=== PATIENT | male | born 1940 | race Caucasian/White ===

== ENCOUNTER → 2018-09-20 16:21 | Outpatient (CLI) | payer MEDICARE, OTHER, SELFPAY ==
--- NOTE | 2018-09-20 16:24 | DI.RAD.S_ITS ---
PROCEDURE: XR LUMBAR SPINE MIN 4V INDICATIONS: L4-5 PAIN TECHNIQUE: 5 total views of the lumbar spine were acquired, including bilateral oblique views. COMPARISON: [facility], CT, CT-IVP, 07/28/2010, 10:21. [facility], CR, ABDOMEN 1 VIEW, 07/28/2010, 10:23. [facility], MR, MR LUMBAR SPINE WO CON, 09/20/2018, 16:34. FINDINGS: Bones: 5 nonrib-bearing vertebrae are present. There is normal bony alignment. No vertebral body compression fractures. No suspicious bony lesions. Mild to moderate disc space narrowing is seen at L4-L5. The disc heights otherwise are well preserved. Lower lumbar spine facet arthropathy is seen. Partially bridging endplate osteophytes are seen anteriorly at L4-L5. Note is made of mild loss of disc height and bridging endplate osteophytes anteriorly at T10-T11. Soft tissues: Overlying bowel gas pattern is normal. No suspicious soft tissue calcifications. There is a 6 mm calcification seen involving right upper quadrant, which is unchanged compared to 2011 and previously seen to be a right lower lobe calcified granuloma. Oblique images: No pars defects. IMPRESSION: Focal L4-L5 degenerative change can be seen. No pars defects are seen. Dictated by: Chukc Elizalde M.D. on 09/20/2018 at 16:59 Approved by: Chuck Elizalde M.D. on 09/20/2018 at 17:01
--- NOTE | 2018-09-20 16:24 | DI.MRI.S_ITS ---
PROCEDURE: MR LUMBAR SPINE WO CON INDICATIONS: L4-5 HNP TECHNIQUE: Noncontrast sagittal T1 spin echo and T2 fast echo, sagittal STIR, axial T1 and T2 fast spin echo through the lumbar spine. In cases with scoliosis, additional coronal T2 fast spin echo may be performed. COMPARISON: [facility], CT, CT-IVP, 07/28/2010, 10:21. [facility], MR, L-SPINE WITHOUT CONTRAST, 07/13/2010, 17:22. [facility], CR, XR LUMBAR SPINE MIN 4V, 09/20/2018, 17:00. FINDINGS: Image quality: Excellent. Alignment and Curvature: There is normal bony alignment. Bone Marrow: Marrow is of normal overall signal. No acute vertebral body compression fractures. Scattered foci are seen, which are hyperintense on T1-weighted and T2-weighted imaging, which are most consistent with benign vertebral body hemangiomas. Spinal Cord: Conus medullaris terminates at the L1 level. Visualized cord demonstrates normal signal and size. Paraspinous Soft Tissues: No paravertebral masses. T12-L1: Normal appearance. L1-L2: No significant abnormality is seen. L2-L3: The disc height is well-preserved. Loss of disc signal is seen at this level. Mild to moderate disc bulge is seen. Mild facet joint hypertrophy is seen. Ugtg-my-jzfhfkpm bilateral neural foraminal narrowing is seen. Phjx-ph-ggotnebf central canal narrowing is seen. These imaging findings have progressed compared to the prior study. L3-L4: The disc height is well-preserved. Loss of disc signal is seen at this level. Moderate generalized disc bulge is seen. Mild facet joint hypertrophy is seen. There is associated mild hypertrophy of the ligamentum flavum. Moderate bilateral neural foraminal narrowing is seen. Moderate central canal narrowing is seen. These imaging findings have progressed compared to the prior study. L4-L5: Mild to moderate loss of disc height and signal are seen. Moderate generalized disc bulge is seen. Wzzk-us-gprdzajj facet hypertrophy is seen. There is mild to moderate right-sided and moderate left-sided neural foraminal narrowing seen. Mild central canal narrowing is seen. There is a relatively prominent annular fissure seen posteriorly and on the left, as on series 2 image 11, which is more prominent than in 2011. L5-S1: The disc height is well-preserved. Loss of disc signal is seen at this level. Mild generalized disc bulge is seen. Mild facet joint hypertrophy is seen. No significant neural foraminal or central canal narrowing can be seen. When comparison is made with the prior examination, these findings are similar. IMPRESSION: At the L4-L5 level, there is a relatively prominent annular fissure seen, which has progressed compared to 2011. Multiple levels of lumbar spine degenerative change are seen, which are overall progressed compared to 2011. Dictated by: Chuck Elizalde M.D. on 09/20/2018 at 16:35 Approved by: Chuck Elizalde M.D. on 09/20/2018 at 16:41
== END ==
PROVIDERS: PCP Family Medicine; Visit Provider Physical Medicine & Rehabilitation
DX: M51.16 Intervertebral disc disorders with radiculopathy, lumbar region (principal); C61 Malignant neoplasm of prostate; M47.26 Other spondylosis with radiculopathy, lumbar region; M47.27 Other spondylosis with radiculopathy, lumbosacral region
CPT/HCPCS: 72110; 72148

== ENCOUNTER 2018-11-22 09:37 | Outpatient (CLI) | payer MEDICARE, OTHER, SELFPAY ==
[2018-11-22] VITALS (8 sets, daily range): BP systolic 97–116; BP diastolic 50–63; PULSE 56–68; RESP 16; TEMP 36.2; O2SAT 95–99
--- NOTE | 2018-11-22 09:39 | DI.RAD.S_ITS ---
PROCEDURE: PAIN L/S TRANSFORAMINAL INJECT INDICATIONS: RADICULOPATHY FINDINGS: Fluoroscopic spot filming was performed to verify placement of spinal needles at the right L4-L5 level(s), as labeled on the films. Appropriate location(s) of the needle tip(s) was confirmed by injection of iodinated contrast. IMPRESSION: Fluoroscopy for pain management. Dictated by: Elo Goff M.D. on 11/22/2018 at 15:23 Approved by: Elo Goff M.D. on 11/22/2018 at 15:24
[2018-11-22] MEDS: MIDAZOLAM 5 MG/5 ML VIAL IV (10:37)
[2018-11-22] MEDS: fentaNYL 100 MCG/2 ML INJ 50 MCG IV (10:38)
[2018-11-22] MEDS: BETAMETHASONE 30 MG/5 ML MDV 12 MG INJ (10:43)
[2018-11-22] MEDS: BUPIVACAINE 0.25% (PF) VIAL 2 ML INJ (10:43)
[2018-11-22] MEDS: IOPAMIDOL 15 ML VIAL 3 ML INJ (10:43)
--- NOTE | 2018-11-22 10:45 | PC.NURSE ---
ASSISTING PT OFF TABLE AND TRANSPORTING TO POST PROC AREA IN STABLE CONDITION
--- NOTE | 2018-11-22 10:49 | P.PCN_ITS ---
Procedures Date/Time Date of procedure: 11/22/18 Time of procedure: 10:48 General Procedure description: PREOP DIAGNOSIS 1. FORMAINAL STENOSIS WITH LE SYMPTOMS POST OP DIAGNOSIS 1. FORMAINAL STENOSIS WITH LE SYMPTOMS PROCEDURES 1. FLUOROSCOPICALLY GUIDED CONTRAST CONTROLLED TRANSFORAMINAL EPIDURAL STEROID INJECTION - RIGHT L4/5 TFESI PHYSICIAN: Jaswant Carroll DO INDICATIONS: Homar is referred by for treatment of Foraminal Stenosis with Right LE Symptoms FINDINGS Foraminal Nerve Root Compression secondary to disc disease and facet hypertrophy DESCRIPTION OF PROCEDURE: Following review of allergy and review of potential side effects and complications, including, but not necessarily limited to, infection, allergic reaction, local tissue breakdown, stroke, temporary or permanent nerve injury, paralysis, and possible , the patient indicated that the patient understood and agreed to proceed. An informed consent document was signed by the patient, witnessed by a nurse, and placed in the patient's chart. Additionally, other treatment options including medications, modalities, and physical therapy were reviewed with the patient. After review of previous anaesthesic history and IV conscious sedation the patient was deemed safe to proceed with todays procedure with IV conscious sedation as ASA class II designation. Safety time-out was performed to confirm patient ID, procedure to be performed and site of procedure. IV sedation was accomplished with a combination of 2mg of Versed and 50mcg of Fentanyl was administered by the RN after DO order, titrated to patient comfort during the course of the procedure while the patient remained responsive to all verbal commands In the prone position following sterile prep and drape of the lumbar region, the Right L4/5 posterior neuroforamen was identified fluoroscopically. The skin was anesthetized via a 25-gauge 1.5-inch needle with 1% lidocaine solution. At this point, a 25-gauge 3.5-inch spinal needle was atraumatically introduced and advanced under fluoroscopic guidance through the posterior Right L4/5 neuroforamen to approximately the anterior aspect of the canal. Depth was confirmed on lateral view. Following negative aspiration, injection of approximately 1.5 cc of Isovue 200 under live fluoroscopy in the AP view confirmed excellent flow along the nerve root, into the epidural space without vascular or intrathecal uptake observed Radiological data, including multiple fluoroscopic views of the lumbosacral spine, reveal a spinal needle at the right L4/5 posterior neuroforamen. Subsequent views show flow of contrast material flowing superiorly and inferiorly along the nerve root confirming epidural flow. Subsequently, a test dose of 1.5 cc of 1% lidocaine solution was administered and patient was observed for two minutes for signs or symptoms of complications, including abdominal pain, shortness of breath, bilateral upper or lower extremity weakness, nausea and vomiting, prior to steroid injection. At this point, a total of 2cc or 20mg of dexamethasone was injected without incident. The procedure tolerated the procedure well without signs or symptoms of complications prior to transfer to the recovery area continued monitoring without incident.The patient was then transferred to the recovery area where they were observed for an appropriate time after the injection. The patient reported a VAS score of 7 prior to the procedure and a post- procedure VAS of 0. Total Fluoroscopy Time: 20.9 seconds Total Conscious Sedation Time: 24min POST OP INSTRUCTIONS The patient was provided a Pain Log to continue to record their response to the target-specific procedure prior to follow-up visit with their referring physician. Additionally, specific post-injection care instructions and a contact number to our office were provided if concerns arise regarding possible complications associated with the procedure are suspected. Jaswant Carroll DO Complications: none
--- NOTE | 2018-11-22 11:09 | PC.NURSE ---
pt returned from procedure awake and alert. Able to move from w/c to chair with standby assist. Resumed monitoring from [facility].
== END 2018-11-22 11:19 ==
LOC: RAD 09:37
PROVIDERS: PCP Family Medicine; Visit Provider Physical Medicine & Rehabilitation
DX: M48.061 Spinal stenosis, lumbar region without neurogenic claudication (principal); M51.16 Intervertebral disc disorders with radiculopathy, lumbar region
CPT/HCPCS: 64483; 99152; J0702; J2250; J3010

== ENCOUNTER 2019-05-07 13:06 | Outpatient (CLI) | payer MEDICARE, OTHER, SELFPAY ==
[2019-05-07] VITALS (8 sets, daily range): BP systolic 96–116; BP diastolic 54–70; PULSE 62–72; RESP 16–18; TEMP 36.1; O2SAT 96–98
--- NOTE | 2019-05-07 13:07 | DI.RAD.S_ITS ---
PROCEDURE: PAIN L INTERLAMINAR/CAUDAL INJ INDICATIONS: RADICULOPATHY FINDINGS: Fluoroscopic spot filming was performed to verify placement of spinal needles at the L4-5 dorsal interlaminar level(s), as labeled on the films. Appropriate location(s) of the needle tip(s) was confirmed by injection of iodinated contrast. IMPRESSION: Successful needle tip localization at the L4-5 interlaminar notch level for dorsal epidural steroid injection. Dictated by: Toribio Sanches M.D. on 05/07/2019 at 15:02 Approved by: Toribio Sanches M.D. on 05/07/2019 at 15:02
[2019-05-07] MEDS: fentaNYL 100 MCG/2 ML INJ 50 MCG IV (14:04)
[2019-05-07] MEDS: MIDAZOLAM 5 MG/5 ML VIAL IV (14:04)
[2019-05-07] MEDS: BUPIVACAINE 0.25% (PF) VIAL 2 ML INJ (14:11)
[2019-05-07] MEDS: DEXAMETHASONE 10 MG/ML VIAL 20 MG INJ (14:11)
[2019-05-07] MEDS: IOPAMIDOL 15 ML VIAL 3 ML INJ (14:11)
[2019-05-07] MEDS: BETAMETHASONE 30 MG/5 ML MDV 6 MG INJ (14:11)
--- NOTE | 2019-05-07 14:13 | PC.NURSE ---
ASSISTING PT OFF TABLE AND TRANSPORTING TO POST PROC AREA IN STABLE CONDITION.
--- NOTE | 2019-05-07 14:17 | P.PCN_ITS ---
Procedures Date/Time Date of procedure: 05/07/19 Time of procedure: 14:17 General Procedure description: PROVIDER: Jaswant Carroll DO Operative Note PREOP DIAGNOSIS 1. HNP WITH RADICULAR FEATURES, 2. MULTILEVEL CENTRAL STENOSIS, POST OP DIAGNOSIS 1. HNP WITH RADICULAR FEATURES, 2. MULTILEVEL CENTRAL STENOSIS PROCEDURES 1. FLUORSCOPICALLY GUIDED CONTRAST CONTROLLED INTERLAMINAR EPIDURAL STEROID INJECTION -L4/5 PHYSICIAN: Jaswant Carroll DO INDICATIONs: Homar is referred by Dr. Taylor for treatment of Bilateral Foraminal Stenosis R>L LE symptoms. FINDINGS Multilevel Central Spinal Stenosis with Nerve Root Compression DESCRIPTION OF PROCEDURE Fluoroscopically guided, contrast-controlled L4/5 translaminar epidural steroid injection. Following review of allergy and review of potential side effects and complications, including, but not necessarily limited to, infection, allergic reaction, local tissue breakdown, temporary as well as permanent nerve injury, paralysis, stroke and possible , the patient indicated that the patient understood and agreed to proceed. An informed consent document was signed by the patient, witnessed by a nurse, and placed in the patient's chart. Additionally, other treatment options including modalities, medications, and physical therapy were reviewed with the patient. After review of previous anaesthesic history and IV conscious sedation the patient was deemed safe to proceed with todays procedure with IV conscious sedation as ASA class II designation. Safety time-out was performed to confirm patient ID, procedure to be performed and site of procedure. IV sedation was accomplished with a combination of 2mg of Versed and 50mcg of Fentanyl was administered by the RN after DO order, titrated to patient comfort during the course of the procedure while the patient remained responsive to all verbal commands In the prone position, following sterile prep and drape of the lumbar region, the L4/5 translaminar space was identified fluoroscopically. The skin was anesthetized via a 25-gauge, 1.5-inch needle with 1% lidocaine solution. At this point, a 22-gauge short bevel spinal needle was atraumatically introduced and advanced under fluoroscopic guidance into the region of the L4/5 translaminar space. Depth was confirmed on lateral view. Radiological data, including multiple fluoroscopic views of the lumbar spine, reveal a spinal needle at the L4/5 translaminar space. Lateral views then show placement of the needle in the epidural space. Subsequent views show contrast material flowing superiorly and inferiorly in the epidural space. No vascular or intrathecal uptake is observed. At this point, using loss of resistance technique with saline and air, the epidural space was entered. This was confirmed following negative aspiration with injection of approximately 1.5 cc of Isovue 200, showing excellent epidural flow without vascular or intrathecal uptake. At this point, 1 cc of 1% lidocaine solution combined with 3cc or 20mg of dexamethasone and 6mg betamethasone was injected without incident. The patient tolerated the procedure well without signs or symptoms of complications prior to transfer to the recovery area continued monitoring without incident. The patient was then transferred to the recovery area where they were observed for an appropriate period of time after the injection. The patient reported a VAS score of 6 prior to the procedure and a post- procedure VAS of 0. Total Fluoroscopy Time: 11.8 seconds, 8.99 mGy Total Conscious Sedation Time: 24min POST OP INSTRUCTIONS The patient was provided a Pain Log to continue to record their response to the target-specific procedure prior to follow-up visit with their referring physician. Additionally, specific post-injection care instructions and a contact number to our office were provided if concerns arise regarding possible complications associated with the procedure are suspected. Jaswant Carroll, Complications: none
--- NOTE | 2019-05-07 15:48 | PC.NURSE ---
Late entry: Post procedure note--Patient arrived for post procedure monitoring at 1420. Handoff report received from Priya Mclean RN. Patient AA/O X3. Pain level 2/10. Able to transfer from w/c to recliner with stand by assist. VSS and O2 sats WNL post procedure. Discharge instructions given and reviewed with patient and with good understanding. Stable for discharge to home. W/C to car at 1445.
== END 2019-05-07 14:42 | disposition home or self-care (01) ==
LOC: RAD 13:07
PROVIDERS: PCP Family Medicine; Visit Provider Physical Medicine & Rehabilitation
DX: M51.16 Intervertebral disc disorders with radiculopathy, lumbar region (principal); M48.061 Spinal stenosis, lumbar region without neurogenic claudication
CPT/HCPCS: 62323; 99152; J0702; J1100; J2250; J3010

== ENCOUNTER → 2020-09-22 09:20 | Outpatient (CLI) | payer MEDICARE, OTHER, SELFPAY ==
[2020-09-22 19:37] LABS: BUN Creatinine Ratio 27.9 (6-22); Blood Urea Nitrogen 31 mg/dL (9-20); Calcium 9.5 mg/dL (8.4-10.2); Carbon Dioxide 28 mmol/L (22-32); Chloride 101 mmol/L (98-107); Estimated Glomerular Filt Rate > 60.0 mL/min (>60); Glucose 79 mg/dL (80-110); HEMOLYSIS 28 (0-50); Potassium 4.5 mmol/L (3.4-5.1); Sodium 139 mmol/L (137-145)
[2020-09-24 07:56] LABS: PSA Free % 20.2 % (.); PSA, Total 5.3 ng/mL (0.0-4.0)
== END ==
PROVIDERS: PCP Family Medicine; Visit Provider Family Medicine
DX: I10 Essential (primary) hypertension (principal); N40.1 Benign prostatic hyperplasia with lower urinary tract symptoms; N13.8 Other obstructive and reflux uropathy
CPT/HCPCS: 80048; 84153; 84154

== ENCOUNTER → 2020-12-17 10:44 | Outpatient (CLI) | payer MEDICARE, OTHER, SELFPAY ==
[2020-12-18 09:20] LABS: PSA Free % 26.9 % (.); PSA, Total 2.9 ng/mL (0.0-4.0)
== END ==
PROVIDERS: PCP Family Medicine; Referring Provider Family Medicine; Visit Provider Family Medicine
DX: I10 Essential (primary) hypertension (principal); N40.1 Benign prostatic hyperplasia with lower urinary tract symptoms; N13.8 Other obstructive and reflux uropathy
CPT/HCPCS: 36415; 84153; 84154

== ENCOUNTER → 2021-03-31 08:06 | Outpatient (CLI) | payer MEDICARE, OTHER, SELFPAY ==
[2021-03-31 20:40] LABS: COVID19 - ORCAS (NP or Nasal) Negative (Negative)
== END ==
PROVIDERS: PCP Family Medicine; Visit Provider Physician Assistant Medical
DX: Z20.822 Contact with and (suspected) exposure to COVID-19 (principal)
CPT/HCPCS: C9803; U0003

== ENCOUNTER → 2021-11-16 08:47 | Outpatient (CLI) | payer MEDICARE, OTHER, SELFPAY ==
--- NOTE | 2021-11-16 08:48 | DI.MRI.S_ITS ---
PROCEDURE: MR LUMBAR SPINE WO CON INDICATIONS: Low back pain left lower extremity radiculopathy TECHNIQUE: Noncontrast sagittal T1 spin echo and T2 fast echo, sagittal STIR, and T2 fast spin echo through the lumbar spine. In cases with scoliosis, additional coronal T2 fast spin echo may be performed. COMPARISON: [facility], MR, MR LUMBAR SPINE WO CON, 09/20/2018, 16:34. FINDINGS: Image quality: Excellent. Alignment and Curvature: There is normal bony alignment. Bone Marrow: Marrow is of normal overall signal. No acute vertebral body compression fractures. Spinal Cord: Conus medullaris terminates at the L1 level. Visualized cord demonstrates normal signal and size. Paraspinous Soft Tissues: No paravertebral masses. T12-L1: Normal appearance. L1-L2: Normal appearance. L2-3: Disc space narrowing with circumferential disc bulge and ligamentum flavum laxity results in mild central stenosis. Mild bilateral foraminal stenosis greater on the right. L3-4: Disc space narrowing and circumferential disc bulge with ligamentum flavum laxity results in moderate central stenosis, effacing both lateral recesses. There is moderate bilateral foraminal stenosis present. L4-5: Disc space narrowing and circumferential disc bulge with hypertrophic facet joints results in mild central stenosis. Mild bilateral foraminal stenosis is greater on the left. L5-S1: Disc height is preserved. No central or foraminal stenosis. IMPRESSION: 1. Multilevel degenerative disc disease and arthropathy results in varying degrees of central and foraminal stenosis, including moderate central stenosis at L3-4, stable from prior Approved by: Dre Khan M.D. on 11/16/2021 at 12:34
== END ==
PROVIDERS: PCP Family Medicine; Referring Provider Physical Medicine & Rehabilitation; Visit Provider Physical Medicine & Rehabilitation
DX: M54.17 Radiculopathy, lumbosacral region (principal); M51.36 Other intervertebral disc degeneration, lumbar region; M48.061 Spinal stenosis, lumbar region without neurogenic claudication; M47.816 Spondylosis without myelopathy or radiculopathy, lumbar region
CPT/HCPCS: 72148

== ENCOUNTER 2021-11-16 11:55 | Outpatient (CLI) | payer MEDICARE, OTHER, SELFPAY ==
[2021-11-16] VITALS (7 sets, daily range): BP systolic 97–123; BP diastolic 52–65; PULSE 65–72; RESP 13–20; TEMP 36.8; O2SAT 97–100
--- NOTE | 2021-11-16 11:57 | DI.RAD.S_ITS ---
PROCEDURE: PAIN L/S TRANSFORAMINAL INJECT INDICATIONS: SPONDYLOSIS COMPARISON: [facility], , PAIN L/S TRANSFORAMINAL INJECT, 11/22/2018, 10:42. FINDINGS: Fluoroscopic spot filming was performed to verify placement of spinal needles at the L4-5 level(s), as labeled on the films. Appropriate location(s) of the needle tip(s) was confirmed by injection of iodinated contrast. IMPRESSION: L4-5 facet injection. Dictated by: Dorothy Sofia M.D. on 11/16/2021 at 16:18 Approved by: Droothy Sofia M.D. on 11/16/2021 at 16:19
[2021-11-16 12:49] LABS: COVID19 -Nasal RAPID Negative (Negative)
[2021-11-16] MEDS: MIDAZOLAM 2 MG/2 ML VIAL IV (13:04)
[2021-11-16] MEDS: IOPAMIDOL 15 ML VIAL 3 ML INJ (13:07)
[2021-11-16] MEDS: BUPIVACAINE 0.25% (PF) VIAL 2 ML INJ (13:08)
[2021-11-16] MEDS: BETAMETHASONE 30 MG/5 ML MDV 6 MG INJ (13:08)
[2021-11-16] MEDS: DEXAMETHASONE 10 MG/ML VIAL 20 MG INJ (13:08)
--- NOTE | 2021-11-16 13:22 | P.PCN_ITS ---
Date/Time/Diagnoses Date of procedure: 11/16/21 Time of procedure: 13:22 Pre-procedure diagnosis: 1. FORAMINAL STENOSIS WITH LE SYMPTOMS Post-procedure diagnosis: same Procedure Notes Procedure: 1. FLUOROSCOPICALLY GUIDED CONTRAST CONTROLLED TRANSFORAMINAL EPIDURAL STEROID INJECTION - LEFT L4/5 Indications: Homar is referred by Dr. Davis for treatment of Foraminal Stenosis with Left LE Symptoms Physician: Jaswant Carroll Total Fluoroscopy time (seconds): 11 Total sedation minutes: 12 Complications: none Procedure in detail & Post-procedure care: FINDINGS Foraminal Nerve Root Compression secondary to disc disease and facet hypertrophy DESCRIPTION OF PROCEDURE Following review of allergy and review of potential side effects and complications, including, but not necessarily limited to, infection, allergic reaction, local tissue breakdown, stroke, temporary or permanent nerve injury, paralysis, and possible , the patient indicated that the patient understood and agreed to proceed. An informed consent document was signed by the patient, witnessed by a nurse, and placed in the patient's chart. Additionally, other treatment options including medications, modalities, and physical therapy were reviewed with the patient. After review of previous anaesthesic history and IV conscious sedation the patient was deemed safe to proceed with today?s procedure with IV conscious sedation as ASA class II designation. Safety time-out was performed to confirm patient ID, procedure to be performed and site of procedure. IV sedation was accomplished with a combination of 2mg of Versed administered by the RN after DO order, titrated to patient comfort during the course of the procedure while the patient remained responsive to all verbal commands In the prone position following sterile prep and drape of the lumbar region, the left L4/5 posterior neuroforamen was identified fluoroscopically. The skin was anesthetized via a 25-gauge 1.5-inch needle with 1% lidocaine solution. At this point, a 25-gauge 3.5-inch spinal needle was atraumatically introduced and advanced under fluoroscopic guidance through the posterior left L4/5 neuroforamen to approximately the anterior aspect of the canal. Depth was confirmed on lateral view. Following negative aspiration, injection of approximately 1.5 cc of Isovue 200 under live fluoroscopy in the AP view confirmed excellent flow along the nerve root, into the epidural space without vascular or intrathecal uptake observed Radiological data, including multiple fluoroscopic views of the lumbosacral spine, reveal a spinal needle at the left L4/5 posterior neuroforamen. Subsequent views show flow of contrast material flowing superiorly and inferiorly along the nerve root confirming epidural flow. Subsequently, a test dose of 1.5 cc of 1% lidocaine solution was administered and patient was observed for two minutes for signs or symptoms of complications, including abdominal pain, shortness of breath, bilateral upper or lower extremity weakness, nausea and vomiting, prior to steroid injection. At this point, a total of 3cc or 20mg of dexamethasone and 6mg of betamethasone was injected without incident. The procedure tolerated the procedure well without signs or symptoms of complications prior to transfer to the recovery area continued monitoring without incident. The patient was then transferred to the recovery area where they were observed for an appropriate time after the injection. The patient reported a VAS score of 7 prior to the procedure and a post- procedure VAS of 0. POST OP INSTRUCTIONS The patient was provided a Pain Log to continue to record their response to the target-specific procedure prior to follow-up visit with their referring physician. Additionally, specific post-injection care instructions and a contact number to our office were provided if concerns arise regarding possible complications associated with the procedure are suspected.
== END 2021-11-16 13:36 | disposition home or self-care (01) ==
LOC: RAD 11:56
PROVIDERS: PCP Family Medicine; Referring Provider Physical Medicine & Rehabilitation; Visit Provider Physical Medicine & Rehabilitation
DX: M54.17 Radiculopathy, lumbosacral region (principal); M51.36 Other intervertebral disc degeneration, lumbar region; M48.061 Spinal stenosis, lumbar region without neurogenic claudication; M47.816 Spondylosis without myelopathy or radiculopathy, lumbar region; Z20.822 Contact with and (suspected) exposure to COVID-19
CPT/HCPCS: 64483; 72148; 87635; 99152; J0702; J1100; J2250

== ENCOUNTER → 2022-03-23 12:20 | Outpatient (CLI) | payer MEDICARE, OTHER, SELFPAY ==
[2022-03-23 19:21] LABS: Add Manual Diff / Slide Review NO; Basophils Absolute Auto 0 /uL (0-100); Basophils Percent Auto 0.6 % (0-2); Eosinophils Absolute Auto 100 /uL (0-450); Hematocrit 38.4 % (41-53); Hemoglobin 13.6 g/dL (13.5-17.5); Lymphocytes Absolute Auto 1000 /uL (1100-4500); Mean Corpuscular HGB Conc 35.5 % (30-36); Mean Corpuscular Hemoglobin 31.4 PG (26-34); Mean Corpuscular Volume 88.4 fL (80-100); Monocytes Absolute Auto 300 /uL (0-900); Monocytes Percent Auto 6.5 % (3-14); Neutrophils Absolute Auto 3700 /uL (1500-7000); Neutrophils Percent Auto 70.9 % (50-75); Platelet Count 143 X10^3/uL (150-400); Red Blood Cell Count 4.34 X10^6/uL (4.5-5.9); Red Cell Distribution Width 13.3 % (11.6-14.8); White Blood Cell Count 5.2 X10^3/uL (4.5-11.0)
[2022-03-23 19:30] LABS: BUN Creatinine Ratio 23.2 (6-22); Blood Urea Nitrogen 26 mg/dL (9-20); Carbon Dioxide 28 mmol/L (22-32); Chloride 101 mmol/L (98-107); Cholesterol 140 mg/dL (140-199); Estimated Glomerular Filt Rate > 60 mL/min (>60); Glucose 87 mg/dL (80-110); HDL Cholesterol 26 mg/dL (40-60); HEMOLYSIS 16 (0-50); LDL Cholesterol Calculated 72 mg/dL (<100); Potassium 4.2 mmol/L (3.4-5.1); Sodium 139 mmol/L (137-145); Triglycerides 211 mg/dL (35-150)
[2022-03-23 20:06] LABS: Prostate Specific Antigen Scrn 0.619 ng/mL (0.1-4.0)
== END ==
PROVIDERS: PCP Family Medicine; Visit Provider Family Medicine
DX: I10 Essential (primary) hypertension (principal); Z12.5 Encounter for screening for malignant neoplasm of prostate; C61 Malignant neoplasm of prostate; N18.2 Chronic kidney disease, stage 2 (mild); R07.9 Chest pain, unspecified; Z86.010 Personal history of colon polyps
CPT/HCPCS: 80048; 80061; 85025; G0103

== ENCOUNTER → 2022-05-03 08:47 | Outpatient (CLI) | payer MEDICARE, OTHER, SELFPAY ==
[2022-05-03 09:35] LABS: COVID19 -Nasal RAPID Negative (Negative)
--- NOTE | 2022-05-03 20:52 | DI.NM.S_ITS ---
DATE OF SERVICE: 05/03/2022 PROCEDURE: Exercise perfusion study INDICATION: Chest pain with underlying hypertension. RADIOPHARMACEUTICAL: 24.6 millicurie technetium-99m Myoview IV was injected at stress and 11.2 millicurie technetium-99m Myoview IV was injected at rest. CARDIAC STRESS: The patient underwent exercise perfusion study under the supervision of an attending staff. He walked on [employer] protocol for 6 minutes and achieved 89 percent of target heart rate. Normal blood pressure response. Resting blood pressure 122/68 mmHg and peak blood pressure 160/70 mmHg. 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 During exercise, the patient has less than 1 mm, mostly upsloping, ST depression in inferior leads and leads V4 to V6. No significant convincing ischemic changes. Achieved 7 METs of workload and JOSIE -19 percent. Occasional PVCs without any complex arrhythmias. Prior to exercise, patient has atypical sharp chest pain on the right side, which was mild and got improved during exercise. Had some shortness of breath during exercise. RAW DATA: Increased subdiaphragmatic activity. There was a hot spot encroaching the inferior border of the heart. GATED STUDY: Resting LV ejection fraction 61 and stress LV ejection fraction is 74 percent without any obvious wall motion abnormalities. Resting end-diastolic volume 104 mL. Lung/heart ratio 0.39, which is within normal limits. MYOCARDIAL PERFUSION SCAN: Stress supine, resting supine and stress prone images were compared to each other. Stress supine and resting supine images revealed large size, moderate to severely decreased perfusion of inferior wall extending into the inferoapex, as well as basal inferolateral wall, which got significantly improved during stress prone images, suggestive of a predominantly tissue attenuation artifact, as mentioned above. CONCLUSION: I will call this study likely a normal myocardial perfusion study with evidence of tissue attenuation artifact, which got significantly improved during stress prone images. There is increased gut shadow, which is encroaching the inferior border of the heart seen during raw images. Good exercise tolerance. Normal hemodynamic response. Nonspecific electrocardiographic changes. Atypical chest pain at rest, which improved during stress exercise. Overall, low-risk myocardial perfusion study. TiffanieHomar - Helen doc#: [id number]/job#: [id number] dd: 05/03/2022 16:59:00 dt: 05/03/2022 20:36:00 DICTATING MD/COPIES TO: Willow Ortiz MD COPIES MNE: FRANC;
== END ==
PROVIDERS: PCP Family Medicine; Referring Provider Family Medicine; Visit Provider Family Medicine
DX: R07.9 Chest pain, unspecified (principal); I10 Essential (primary) hypertension; Z20.822 Contact with and (suspected) exposure to COVID-19
CPT/HCPCS: 78452; 87635; 93017; A9502

== ENCOUNTER → 2022-10-10 10:29 | Outpatient (CLI) | payer MEDICARE, OTHER, SELFPAY ==
[2022-10-10 20:25] LABS: Cholesterol 101 mg/dL (140-199); HDL Cholesterol 26 mg/dL (40-60); LDL Cholesterol Calculated 37 mg/dL (<100); Triglycerides 188 mg/dL (35-150)
[2022-10-10 20:55] LABS: Prostate Specific Antigen 0.324 ng/mL (0.10-4.00)
== END ==
PROVIDERS: PCP Family Medicine; Visit Provider Family Medicine
DX: I10 Essential (primary) hypertension (principal); C61 Malignant neoplasm of prostate; E78.5 Hyperlipidemia, unspecified
CPT/HCPCS: 80061; 84153

== ENCOUNTER → 2022-12-26 11:47 | Outpatient (CLI) | payer MEDICARE, OTHER, SELFPAY ==
--- NOTE | 2022-12-26 11:49 | DI.RAD.S_ITS ---
PROCEDURE: XR LUMBAR SPINE MIN 4V INDICATIONS: BACK PAIN TECHNIQUE: 5 views of the lumbar spine were acquired, including bilateral oblique views. COMPARISON: [facility], MR, MR LUMBAR SPINE WO CON, 11/16/2021, 8:54. [facility], CR, XR LUMBAR SPINE MIN 4V, 09/20/2018, 17:00. FINDINGS: Bones: 5 nonrib-bearing vertebrae are present. Moderate disc height loss at L4-5. Mild disc height loss at remaining levels. Mild facet arthrosis at L4-5 and L5-S1. Soft tissues: Overlying bowel gas pattern is normal. No suspicious soft tissue calcifications. Oblique images: No pars defects. IMPRESSION: Mild to moderate, multilevel degenerative disc disease and facet arthrosis, not significantly changed since MRI from 2021. Dictated by: Gary Pandya M.D. on 12/26/2022 at 14:27 Approved by: Gary Pandya M.D. on 12/26/2022 at 14:28
== END ==
PROVIDERS: PCP Family Medicine; Referring Provider Physical Medicine & Rehabilitation; Visit Provider Physical Medicine & Rehabilitation
DX: M51.16 Intervertebral disc disorders with radiculopathy, lumbar region (principal); M47.26 Other spondylosis with radiculopathy, lumbar region; M47.27 Other spondylosis with radiculopathy, lumbosacral region; M75.41 Impingement syndrome of right shoulder; N18.2 Chronic kidney disease, stage 2 (mild)
CPT/HCPCS: 72110; 99214

== ENCOUNTER 2023-01-17 11:46 | Outpatient (CLI) | payer MEDICARE, OTHER, SELFPAY ==
[2023-01-17] VITALS (8 sets, daily range): BP systolic 106–137; BP diastolic 54–86; PULSE 60–68; RESP 13–18; TEMP 36.7; O2SAT 96–100
--- NOTE | 2023-01-17 11:48 | DI.RAD.S_ITS ---
PROCEDURE: PAIN L/S TRANSFORAMINAL INJECT INDICATIONS: SPONDYLOSIS COMPARISON: [facility], CR, XR LUMBAR SPINE MIN 4V, 12/26/2022, 11:55. FINDINGS: Fluoroscopic spot filming was performed to verify placement of a spinal needle at the L4-L5 level, as labeled on the films. Appropriate location of the needle tip was confirmed by injection of iodinated contrast. IMPRESSION: Intraprocedural examination within normal limits. Dictated by: Chuck Elizalde M.D. on 01/17/2023 at 12:34 Approved by: Chuck Elizalde M.D. on 01/17/2023 at 12:34
[2023-01-17] MEDS: MIDAZOLAM 2 MG/2 ML VIAL IV (12:07)
[2023-01-17] MEDS: BETAMETHASONE 30 MG/5 ML MDV 6 MG INJ (12:13)
[2023-01-17] MEDS: BUPIVACAINE 0.25% (PF) VIAL 2 ML INJ (12:13)
[2023-01-17] MEDS: DEXAMETHASONE 10 MG/ML VIAL INJ (12:13)
[2023-01-17] MEDS: IOPAMIDOL 15 ML VIAL 3 ML INJ (12:13)
--- NOTE | 2023-01-17 12:29 | P.PCN_ITS ---
Date/Time/Diagnoses Date of procedure: 01/17/23 Time of procedure: 12:29 Pre-procedure diagnosis: 1. FORAMINAL STENOSIS WITH LE SYMPTOMS Post-procedure diagnosis: same Procedure Notes Procedure: 1. FLUOROSCOPICALLY GUIDED CONTRAST CONTROLLED TRANSFORAMINAL EPIDURAL STEROID INJECTION - LEFT L4/5 Indications: Homar is referred by Dr. García for treatment of Foraminal Stenosis with Left LE Symptoms Physician: Jaswant Carroll Total Fluoroscopy time (seconds): 16 Total sedation minutes: 16 Complications: none Procedure in detail & Post-procedure care: FINDINGS Foraminal Nerve Root Compression secondary to disc disease and facet hypertrophy DESCRIPTION OF PROCEDURE Following review of allergy and review of potential side effects and complications, including, but not necessarily limited to, infection, allergic reaction, local tissue breakdown, stroke, temporary or permanent nerve injury, paralysis, and possible , the patient indicated that the patient understood and agreed to proceed. An informed consent document was signed by the patient, witnessed by a nurse, and placed in the patient's chart. Additionally, other treatment options including medications, modalities, and physical therapy were reviewed with the patient. After review of previous anaesthesic history and IV conscious sedation the patient was deemed safe to proceed with today?s procedure with IV conscious sedation as ASA class II designation. Safety time-out was performed to confirm patient ID, procedure to be performed and site of procedure. IV sedation was accomplished with a combination of 2mg of Versed administered by the RN after DO order, titrated to patient comfort during the course of the procedure while the patient remained responsive to all verbal commands In the prone position following sterile prep and drape of the lumbar region, the left L4/5 posterior neuroforamen was identified fluoroscopically. The skin was anesthetized via a 25-gauge 1.5-inch needle with 1% lidocaine solution. At this point, a 25-gauge 3.5-inch spinal needle was atraumatically introduced and advanced under fluoroscopic guidance through the posterior left L4/5 neuroforamen to approximately the anterior aspect of the canal. Depth was confirmed on lateral view. Following negative aspiration, injection of approximately 1.5 cc of Isovue 200 under live fluoroscopy in the AP view confirmed excellent flow along the nerve root, into the epidural space without vascular or intrathecal uptake observed Radiological data, including multiple fluoroscopic views of the lumbosacral spine, reveal a spinal needle at the left L4/5 posterior neuroforamen. Subsequent views show flow of contrast material flowing superiorly and inferiorly along the nerve root confirming epidural flow. Subsequently, a test dose of 1.5 cc of 1% lidocaine solution was administered and patient was observed for two minutes for signs or symptoms of complications, including abdominal pain, shortness of breath, bilateral upper or lower extremity weakness, nausea and vomiting, prior to steroid injection. At this point, a total of 3cc or 20mg of dexamethasone and 6mg of betamethasone was injected without incident. The procedure tolerated the procedure well without signs or symptoms of complications prior to transfer to the recovery area continued monitoring without incident. The patient was then transferred to the recovery area where they were observed for an appropriate time after the injection. The patient reported a VAS score of 7 prior to the procedure and a post- procedure VAS of 1. POST OP INSTRUCTIONS The patient was provided a Pain Log to continue to record their response to the target-specific procedure prior to follow-up visit with their referring physician. Additionally, specific post-injection care instructions and a contact number to our office were provided if concerns arise regarding possible complications associated with the procedure are suspected.
--- NOTE | 2023-01-17 13:42 | PC.NURSE ---
patient's left leg was numb on return to the recovery area. patient's numbness reassessed every 10 mins. Patient returned to his baseline at 1330 nad was discharged to his . Dr. Glen lewis.
== END 2023-01-17 13:32 | disposition home or self-care (01) ==
LOC: RAD 11:47
PROVIDERS: PCP Family Medicine; Referring Provider Physical Medicine & Rehabilitation; Visit Provider Physical Medicine & Rehabilitation
DX: M48.061 Spinal stenosis, lumbar region without neurogenic claudication (principal); M51.16 Intervertebral disc disorders with radiculopathy, lumbar region; M47.26 Other spondylosis with radiculopathy, lumbar region
CPT/HCPCS: 64483; 99152; J0702; J1100; J2250; J3490

== ENCOUNTER → 2023-04-06 13:31 | Outpatient (CLI) | payer MEDICARE, OTHER, SELFPAY ==
[2023-04-06 19:55] LABS: Prostate Specific Antigen 0.438 ng/mL (0.10-4.00)
== END ==
PROVIDERS: PCP Family Medicine; Visit Provider Family Medicine
DX: C61 Malignant neoplasm of prostate (principal)
CPT/HCPCS: 84153

== ENCOUNTER → 2023-07-10 14:10 | Outpatient (CLI) | payer MEDICARE, OTHER, SELFPAY ==
[2023-07-10 20:09] LABS: Add Manual Diff / Slide Review NO; Basophils Absolute Auto 0 /uL (0-100); Basophils Percent Auto 0.4 % (0-2); Eosinophils Absolute Auto 100 /uL (0-450); Eosinophils Percent Auto 2.2 % (2-4); Hematocrit 40.1 % (41-53); Hemoglobin 14.1 g/dL (13.5-17.5); Lymphocytes Absolute Auto 1100 /uL (1100-4500); Lymphocytes Percent Auto 21.3 % (25-40); Mean Corpuscular HGB Conc 35.1 % (30-36); Mean Corpuscular Hemoglobin 31.2 PG (26-34); Mean Corpuscular Volume 88.8 fL (80-100); Monocytes Absolute Auto 400 /uL (0-900); Monocytes Percent Auto 8.3 % (3-14); Neutrophils Absolute Auto 3500 /uL (1500-7000); Neutrophils Percent Auto 67.8 % (50-75); Platelet Count 162 X10^3/uL (150-400); Red Blood Cell Count 4.52 X10^6/uL (4.5-5.9); Red Cell Distribution Width 13.6 % (11.6-14.8); White Blood Cell Count 5.2 X10^3/uL (4.5-11.0)
[2023-07-10 20:15] LABS: BUN Creatinine Ratio 26.1 (6-22); Blood Urea Nitrogen 30 mg/dL (9-20); Calcium 9.3 mg/dL (8.4-10.2); Carbon Dioxide 28 mmol/L (22-32); Chloride 101 mmol/L (98-107); Estimated Glomerular Filt Rate > 60 mL/min (>60); Glucose 90 mg/dL (80-110); HEMOLYSIS < 15 (0-50); Potassium 4.2 mmol/L (3.4-5.1); Sodium 137 mmol/L (137-145)
[2023-07-11] LABS: Vitamin B12 490 pg/mL (239-931)
[2023-07-11 10:23] LABS: HEMOLYSIS < 15 (0-50); Iron 74 ug/dL (49-181)
[2023-07-11 10:40] LABS: Percent Iron Saturation 22 % (20-50); Total Iron Binding Capacity 342 ug/dL (261-462)
[2023-07-11 10:42] LABS: Transferrin 282 mg/dL (206-381)
== END ==
PROVIDERS: PCP Family Medicine; Visit Provider Family Medicine
DX: D64.9 Anemia, unspecified (principal); N18.2 Chronic kidney disease, stage 2 (mild); I10 Essential (primary) hypertension
CPT/HCPCS: 80048; 82607; 83540; 83550; 85025

== ENCOUNTER → 2023-10-06 08:37 | Outpatient (CLI) | payer MEDICARE, OTHER, SELFPAY ==
[2023-10-06 19:41] LABS: Cholesterol 85 mg/dL (140-199); HDL Cholesterol 26 mg/dL (40-60); LDL Cholesterol Calculated 34 mg/dL (<100); Triglycerides 123 mg/dL (35-150)
[2023-10-06 20:15] LABS: Prostate Specific Antigen 0.378 ng/mL (0.10-4.00)
== END ==
PROVIDERS: PCP Family Medicine; Visit Provider Family Medicine
DX: C61 Malignant neoplasm of prostate (principal); E78.2 Mixed hyperlipidemia
CPT/HCPCS: 80061; 84153

== ENCOUNTER → 2024-05-23 13:35 | Outpatient (CLI) | payer MEDICARE, OTHER, SELFPAY ==
[2024-05-23 20:03] LABS: Add Manual Diff / Slide Review NO; Basophils Absolute Auto 0 /uL (0-100); Basophils Percent Auto 0.7 % (0-2); Eosinophils Absolute Auto 200 /uL (0-450); Hematocrit 42.1 % (41-53); Hemoglobin 14.6 g/dL (13.5-17.5); Lymphocytes Absolute Auto 1100 /uL (1100-4500); Lymphocytes Percent Auto 20.5 % (25-40); Mean Corpuscular HGB Conc 34.7 % (30-36); Mean Corpuscular Hemoglobin 31.4 PG (26-34); Mean Corpuscular Volume 90.6 fL (80-100); Monocytes Absolute Auto 400 /uL (0-900); Monocytes Percent Auto 7.4 % (3-14); Neutrophils Absolute Auto 3800 /uL (1500-7000); Neutrophils Percent Auto 68.4 % (50-75); Platelet Count 162 X10^3/uL (150-400); Red Blood Cell Count 4.65 X10^6/uL (4.5-5.9); Red Cell Distribution Width 13.5 % (11.6-14.8); White Blood Cell Count 5.5 X10^3/uL (4.5-11.0)
[2024-05-23 20:14] LABS: Blood Urea Nitrogen 31 mg/dL (9-20); Calcium 9.2 mg/dL (8.4-10.2); Carbon Dioxide 31 mmol/L (22-32); Chloride 102 mmol/L (98-107); Estimated Glomerular Filt Rate 58 mL/min (>60); Glucose 112 mg/dL (80-110); HEMOLYSIS 20 (0-50); Sodium 138 mmol/L (137-145)
[2024-05-23 20:49] LABS: Prostate Specific Antigen 0.464 ng/mL (0.10-4.00)
== END ==
PROVIDERS: PCP Family Medicine; Visit Provider Family Medicine
DX: D64.9 Anemia, unspecified (principal); C61 Malignant neoplasm of prostate; N18.2 Chronic kidney disease, stage 2 (mild); I12.9 Hypertensive chronic kidney disease with stage 1 through stage 4 chronic kidney disease, or unspecified chronic kidney disease
CPT/HCPCS: 80048; 84153; 85025